=== PATIENT | male | born 1985 | race Hispanic/Latino ===

== ENCOUNTER 2022-06-08 21:52 | Emergency (ER) | payer OTHER ==
[~2022-06-08] VITALS: Ht 172.7 cm; Wt 90.9 kg
[2022-06-08 21:56] VITALS: BP 126/76
[2022-06-08] MEDS ORDERED: NAPR220C14 PO (22:07)
[2022-06-09] MEDS ORDERED: ACETAMINOPHEN 325 MG TAB PO ONE (00:35)
== END 2022-06-09 06:54 | disposition home or self-care (01) ==
LOC: M ED 21:52
DX: R05.9 Cough, unspecified (principal); R51.9 Headache, unspecified; R19.7 Diarrhea, unspecified; Z20.822 Contact with and (suspected) exposure to COVID-19